=== PATIENT | female | born 2000 | race Caucasian/White ===

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

== ENCOUNTER 2022-05-26 20:34 | Emergency (ER) | payer OTHER, BC, MEDICAID ==
[2022-05-26] MEDS ORDERED: fentaNYL 100 MCG/2 ML SDV IVPUSH ONE (21:24)
[2022-05-26] MEDS ORDERED: Diphtheria,Pertussis(Acell),Tetanus Vaccine 0.5 ML Syringe IM ONE (22:00)
== END 2022-05-26 23:40 | disposition home or self-care (01) ==
LOC: JP.ED 20:34
DX: S82.225A Nondisplaced transverse fracture of shaft of left tibia, initial encounter for closed fracture (principal); S00.33XA Contusion of nose, initial encounter; Z23 Encounter for immunization; V86.52XA Driver of snowmobile injured in nontraffic accident, initial encounter; Y92.410 Unspecified street and highway as the place of occurrence of the external cause
CPT/HCPCS: 29505; 73590; 90471; 90715; 96374; 99283; J3010